=== PATIENT | female | born 1995 | race Caucasian/White ===

== ENCOUNTER 2023-12-11 05:30 | Inpatient (IN) | payer MEDICAID ==
[2023-12-11] VITALS (29 sets, daily range): BP systolic 91–124; BP diastolic 50–68; PULSE 65–93; TEMP 97.7–98.6
[~2023-12-11] VITALS: Ht 152.4 cm; Wt 55.5 kg
--- NOTE | 2023-12-11 06:17 | NUR ---
PT AMBULATORY TO UNIT. 40/[address] BACA FOR SCHEDULED INDUCTION. PT CONFIRMS IGLESIA VALDEZ CONTRACTIONS BUT NOTHING REGULAR. PT DENIES LOF AND VAGINAL BLEEDING. PT CONFIRMS MOVEMENT
[2023-12-11] MEDS ORDERED: LR & Oxytocin 500 ML IV SCH (06:30)
[2023-12-11] MEDS ORDERED: LR 1,000 ML IV SCH (06:30)
[2023-12-11] MEDS ORDERED: LR 1,000 ML IV PRN (06:30)
[2023-12-11 07:06] LABS: BASO % 0.3 % (0.0-2.0); EOS % 0.3 % (0.0-4.0); GRAN # 5.2 K/mm3 (1.4-6.5); GRAN % 60.6 % (42.2-75.2); LYMPH # 2.6 K/mm3 (1.2-3.4); MEAN CELL VOLUME 81 fl (80.0-100.0); MEAN CORPUSCULAR HGB CONC 31 g/dl (33.0-37.0); MEAN PLATELET VOLUME 10.7 fl (7.4-10.4); MONO # 0.7 K/mm3 (0.1-0.6); MONO % 7.9 % (1.7-9.3); PLATELET COUNT 233 K/mm3 (130-400); REDCELL DISTRIBUTION WIDTH-CV 15.6 % (11.5-14.5)
[2023-12-11 07:07] LABS: HEMATOCRIT 27.4 % (37.0-47.0); HEMOGLOBIN 8.6 g/dl (12.5-16.0); MEAN CORPUSCULAR HEMOGLOBIN 25 pg (27-31)
[2023-12-11] MEDS ORDERED: QUALITY CHOICE1 TA7 (07:22)
--- NOTE | 2023-12-11 08:34 | NUR ---
DR. BACA AT BEDSIDE, DISCUSSES AROM WITH PT, PT AGREES. AROM PERFORMED BY DR. BACA AT 0834 WITH CLEAR FLUID NOTED. SVE /-2. EDUCATION GIVEN TO PT TO STAY IN BED FOR 20 MINUTES AFTER AROM
[2023-12-11] MEDS ORDERED: ROPivacaine PF 0.2% 200 ML IV ONE (08:47)
--- NOTE | 2023-12-11 08:55 | NUR ---
PT REQUESTS EPIDURAL, ERIKA RUTLEDGE NOTIFIED. LR BOLUS RUNNING, CONTINUOUS PULSE OX APPLIED. PT POSITIONED FOR EPIDURAL SITTING ON EDGE OF BED. ERIKA RUTLEDGE AT BEDSIDE FOR PLACEMENT. DIFFICULT TO MAINTAIN CONTINUOUS FHTS DUE TO PT POSITION FOR EPIDURAL. SINGLE SHOT GIVEN AT 0855 PER ERIKA RUTLEDGE. PT TOLERATES PROCEDURE WELL AND LAID BACK IN BED. ERIKA RUTLEDGE CONNECTS EPIDURAL TO CONTINUOUS PUMP
[2023-12-11] MEDS ORDERED: Ondansetron 4 MG/2 ML VIAL IV PRN (09:15)
[2023-12-11] MEDS ORDERED: Naloxone 0.4 MG/ML VIAL IV PRN ×2 (09:15→10:45)
[2023-12-11] MEDS ORDERED: ePHEDrine 50 MG/10 ML VIAL IV PRN (09:15)
[2023-12-11] MEDS ORDERED: diphenhydrAMINE 25 MG CAP PO PRN (09:15)
[2023-12-11] MEDS ORDERED: diphenhydrAMINE 50 MG/ML 1 ML VIAL IV PRN (09:15)
--- NOTE | 2023-12-11 10:29 | NUR ---
1010: PT COMPLETE, +1 STATION, CALL TO DR. BACA, NURSERY NURSE, AND CHARGE NURSE NOTIFIED. 1027: DR. BACA AT BEDSIDE FOR DELIVERY, SHIELDS D/C, PT UP IN STIRRUPS FOR PUSHING. 1029: OF VIABLE FEMALE . CORD CLAMPED X2 AND CUT BY FOB. NURSERY RN TAKES OVER CARE ON . PITOCIN STOPPED 1033: OF INTACT PLACENTA, PITOCIN BOLUS STARTED DR. BACA EXAMINES AND PT IS INTACT, QBL 200ML, PT CLEANED UP AND BED PUT BACK TOGETHER. PT IN STABLE CONDITION AND WILL CONTINUE TO MONITOR .
[2023-12-11] MEDS ORDERED: Witch Hazel 50% Pads Bulk TUB TP PRN (10:45)
[2023-12-11] MEDS ORDERED: Magnes Hydrox (MOM) 80 MG/ML 30 ML CUP PO PRN (10:45)
[2023-12-11] MEDS ORDERED: Phenylephrine/Mineral Oil/Petrolatum 57 GM TUBE RC PRN (10:45)
[2023-12-11] MEDS ORDERED: oxyCODONE 5 MG TAB PO PRN (10:45)
[2023-12-11] MEDS ORDERED: Mag/Al Hydrox/Simeth Susp 30 ML CUP PO PRN (10:45)
[2023-12-11] MEDS ORDERED: Tdap Vaccine 0.5 ML SYRINGE IM SCH (10:45)
[2023-12-11] MEDS ORDERED: Measles/Mumps/Rubella Virus Vaccine Live w Diluent 0.5 ML VIAL SQ SCH (10:45)
[2023-12-11] MEDS ORDERED: Loratadine 10 MG TAB PO PRN (10:45)
[2023-12-11] MEDS ORDERED: Ibuprofen 600 MG TAB PO SCH (11:00)
[2023-12-11] MEDS ORDERED: Acetaminophen 500 MG TAB PO SCH (11:00)
--- NOTE | 2023-12-11 11:45 | NUR ---
CARE OF PATIENT RECIEVED FROM BA GLOVER. PATIENT STILL IN RECOVERY. ADALBERTO REPORTS HER FUNDUS HAS BEEN FIRM AND BLEEDING WNL.
--- NOTE | 2023-12-11 11:47 | NUR ---
THIS NURSE GIVES REPORT TO Tuan JJ RN
--- NOTE | 2023-12-11 11:50 | NUR ---
PATIENT HAS HAD A COUPLE LOW BLOOD PRESSURES. PATIENT DENIES ANY SYMPTOMS AT THIS TIME. BLEEDING WNL AND FUNDUS IS FIRM.
--- NOTE | 2023-12-11 14:20 | NUR ---
1420 PATIENT ASSISTED TO DANGLE AT SIDE OF BED. EPIDURAL CATHETER REMOVED. 1425 PATIENT ASSISTED TO STAND X1 RN. WITH ANOTHER RN IN CLOSE VACINITY. PATIENT STOOD UP SHE BEGAN TO FALL TO HER KNEES. THIS RN ASSISTED HER TO STAND AND THEN SIT BACK DOWN ON THE BED. THE SERA STEADY WAS THEN BROUGHT TO THE ROOM. 1430 PATIENT ASSISTED X1 RN WITH SERA STEADY TO BATHROOM. PATIENT UNABLE TO VOID. PERICARE COMPLETED. 1435 PATIENT ASSISTED X1 RN WITH SERA STEADY TO ROOM. PATIENT ASSISTED INTO BED AND ORIENTED TO ROOM.
[2023-12-11] MEDS ORDERED: Sennosides/Docusate 8.6-50 MG TAB PO SCH (17:00)
[2023-12-11] MEDS ORDERED: traZODone 50 MG TAB PO PRN (21:00)
[2023-12-12] VITALS: BP 94/58; PULSE 61; TEMP 98.2
[2023-12-12 07:00] VITALS: BP 104/65; PULSE 62; TEMP 97.8
[2023-12-12] MEDS ORDERED: IBU600 MG PO (08:29)
[2023-12-12] MEDS ORDERED: Influenza Virus Vaccine, Trivalent '24-25 0.5 ML SYRINGE IM SCH ×2 (09:00)
--- NOTE | 2023-12-12 13:28 | NUR ---
Initial visit; Patient thanked Director Of Medical Staff Services for offering congratulations and God's blessings for the of her daughter. Director Of Medical Staff Services thanked patient for choosing [facility] and wished her well.
--- NOTE | 2023-12-12 14:25 | NUR ---
THIS RN DISCUSSES DISCHARGE TEACHING IW PATIENT AND SIGNIFICANT OTHER. PATIENT QUESTIONS ASKED AND ANSWERED, PATIENT AMBULATORY OFF UNIT WITH SPOUSE AND THIS RN AND DISCHARGED HOME IN STABLE CONDITION.
== END 2023-12-12 14:25 | disposition home or self-care (01) | DRG 807 ==
LOC: LDR 05:30 → OB 06:11 → LDR 15:47 → OB 12-12 14:25
PROVIDERS: ADMIT Obstetrics & Gynecology
PROC: 10E0XZZ Delivery of Products of Conception, External Approach (ICD-10-PCS; principal; 2023-12-11)
PROC: 10907ZC Drainage of Amniotic Fluid, Therapeutic from Products of Conception, Via Natural or Artificial Opening (ICD-10-PCS; 2023-12-11)
DX: O48.0 Post-term pregnancy (principal); Z37.0 Single live birth; O99.02 Anemia complicating childbirth; F41.9 Anxiety disorder, unspecified; F31.9 Bipolar disorder, unspecified; Z3A.40 40 weeks gestation of pregnancy; O99.344 Other mental disorders complicating childbirth
CPT/HCPCS: J2590; J2795; J7120